=== PATIENT | female | born 1955 | race Caucasian/White ===

== ENCOUNTER 2021-02-08 20:12 | Emergency (ER) | payer BC, MEDICARE ==
[2021-02-08] MEDS ORDERED: Sodium Chloride 0.9% 1,000 ML IV ONE (21:20)
[2021-02-08] MEDS ORDERED: Ketorolac 30 MG/ML SDV IVPUSH ONE (21:20)
--- NOTE | 2021-02-08 21:20 | EDM.PDOC ---
ED HPI GENERAL MEDICAL PROBLEM - General Chief Complaint: Abdominal Pain Stated Complaint: ABDOMINAL PAIN/BACK PAIN Time Seen by Provider: 02/08/21 21:10 Source of Information: Reports: Patient History Limitations: Reports: No Limitations - History of Present Illness INITIAL COMMENTS - FREE TEXT/NARRATIVE: Patient is a 65-year-old female complaining of lower abdominal pain starting 3 days ago and is localized more to the right lower quadrant today. Pain is worse with certain movements the patient has not lost her appetite and does not see a correlation with increased pain with eating. She denies any fever or shaking chills. She did take some Tylenol which did make her feel better last night. Pain has gotten worse today and she rates it as 9 out of 10 in intensity at its worst currently 5 out of 10. She denies any dysuria or hematuria. Past surgical history is positive for cholecystectomy and hysterectomy. She states the pain is worse when she rolls over on her stomach or she touches the area. She has not had similar symptoms in the past. 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 Right Lower Abdomen Pain Score (Numeric/FACES): 6 - Related Data Allergies Allergy/AdvReac Type Severity Reaction Status Date / Time codeine Allergy Cannot Verified 02/08/21 20:31 Remember Home Meds: Home Meds Sulfamethoxazole/Trimethoprim [Bactrim Ds Tablet] 1 each PO BID #10 tablet 02/08/21 [Rx] Past Medical History HEENT History: Reports: Impaired Vision Gastrointestinal History: Reports: GERD 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 Constitutional: Reports: No Symptoms Respiratory: Reports: No Symptoms Cardiovascular: Reports: No Symptoms GI/Abdominal: Reports: Abdominal Pain. Denies: Anorexia, Bloody Stool, Distension, Melena, Nausea, Vomiting : Reports: No Symptoms. Denies: Dysuria, Hematuria Musculoskeletal: Reports: No Symptoms ED EXAM, GI/ABD - Physical Exam Exam: See Below Exam Limited By: No Limitations General Appearance: Alert, No Apparent Distress Head: Atraumatic, Normocephalic Neck: Normal Inspection, Supple Respiratory/Chest: No Respiratory Distress, Lungs Clear, Normal Breath Sounds Cardiovascular: Regular Rate, Rhythm, No Edema, No JVD GI/Abdominal Exam: Normal Bowel Sounds, Soft, Rebound, Tender. No: Distended, Guarding Back Exam: Normal Inspection. No: CVA Tenderness (L), CVA Tenderness (R) Extremities: Normal Inspection Neurological: Alert, Oriented Psychiatric: Normal Affect, Normal Mood Skin Exam: Warm, Dry Lymphatic: No Adenopathy Course - Vital Signs Text/Narrative:: Lab work including CBC and UA were all normal. Patient's CT scan of her abdomen pelvis showed that there is moderate bladder wall thickening and mild fullness of the collecting systems and ureters may be related to the abnormal bladder wall. No urinary calcifications are seen. Also the appendix was not specifically identified but no evidence of fluid or inflammatory stranding at the base of the cecum and there is a minor focus of groundglass density in the right lower lobe. I am not sure what is causing patient's bladder wall to be thickened but I will start her on a course of Bactrim in case this is infectious etiology and recommend she follow-up with a urologist as soon as possible. I will give her a prescription for a few [place] through [facility] also. She is to return to emergency department if having fever chills vomiting worse symptoms or she is not improving. Last Recorded V/S: Last Vital Signs Temp 97.1 F 02/08/21 20:28 Pulse 72 02/08/21 20:28 Resp 18 02/08/21 20:28 BP 166/73 H 02/08/21 20:28 Pulse Ox 100 02/08/21 20:28 - Orders/Labs/Meds Orders: Active Orders 24 hr Category Date Time Status Abdomen Pelvis w Cont [CT] Stat Exams 02/08/21 21:22 Taken Sulfamethoxazole/Trimethoprim [Septra DS] Med 02/08/21 23:42 Once 1 tab PO ONETIME ONE Labs: Laboratory Tests 02/08/21 02/08/21 02/08/21 Range/Units 21:35 21:35 22:05 WBC 7.72 (3.98-10.04) K/mm3 RBC 4.58 (3.98-5.22) M/mm3 Hgb 13.2 (11.2-15.7) gm/dl Hct 40.9 (34.1-44.9) % MCV 89.3 (79.4-94.8) fl MCH 28.8 (25.6-32.2) pg MCHC 32.3 (32.2-35.5) g/dl RDW Std Deviation 39.3 (36.4-46.3) fL Plt Count 332 (182-369) K/mm3 MPV 10.2 (9.4-12.3) fl Neutrophils % (Manual) 65 H (40-60) % Band Neutrophils % 1 (0-10) % Lymphocytes % (Manual) 28 (20-40) % Atypical Lymphs % 0 % Monocytes % (Manual) 4 (2-10) % Eosinophils % (Manual) 2 (0.7-5.8) % Basophils % (Manual) 0 L (0.1-1.2) Platelet Estimate Adequate RBC Morph Comment Normal Sodium 142 (136-145) mEq/L Potassium 4.3 (3.5-5.1) mEq/L Chloride 102 (98-107) mEq/L Carbon Dioxide 31 (21-32) mEq/L Anion Gap 13.3 (5-15) BUN 16 (7-18) mg/dL Creatinine 0.9 (0.55-1.02) mg/dL Est Cr Clr Drug Dosing 62.03 mL/min Estimated GFR (MDRD) > 60 (>60) mL/min BUN/Creatinine Ratio 17.8 (14-18) Glucose 95 (70-99) mg/dL Calcium 9.4 (8.5-10.1) mg/dL Total Bilirubin 0.2 (0.2-1.0) mg/dL AST 18 (15-37) U/L ALT 21 (14-59) U/L Alkaline Phosphatase 97 (46-116) U/L Total Protein 7.6 (6.4-8.2) g/dl Albumin 4.0 (3.4-5.0) g/dl Globulin 3.6 gm/dL Albumin/Globulin Ratio 1.1 (1-2) Urine Color Yellow (Yellow) Urine Appearance Clear (Clear) Urine pH 7.0 (5.0-8.0) Ur Specific [place] 1.020 (1.005-1.030) Urine Protein Negative (Negative) Urine Glucose (UA) Negative (Negative) Urine Ketones Negative (Negative) Urine Occult Blood Negative (Negative) Urine Nitrite Negative (Negative) Urine Bilirubin Negative (Negative) Urine Urobilinogen 0.2 (0.2-1.0) Ur Leukocyte Esterase Negative (Negative) Meds: Medications Discontinued Medications Generic Name Dose Route Start Last Admin Trade Name Freq PRN Reason Stop Dose Admin Sodium Chloride 1,000 mls @ 1,000 mls/hr 02/08/21 21:20 02/08/21 21:33 Normal Saline IV 02/08/21 22:19 1,000 mls/hr ONETIME ONE Administration Iopamidol 100 ml 02/08/21 22:09 02/08/21 22:11 Iopamidol 612 Mg/Ml 100 Ml Bottle IVPUSH 02/08/21 22:10 100 ml ONETIME ONE Administration Ketorolac Tromethamine 15 mg 02/08/21 21:20 02/08/21 21:33 Ketorolac 30 Mg/Ml Sdv IVPUSH 02/08/21 21:21 15 mg ONETIME ONE Administration Sodium Chloride 10 ml 02/08/21 22:09 02/08/21 22:11 Sodium Chloride 0.9% 10 Ml Sdv FLUSH 02/08/21 22:10 10 ml ONETIME ONE Administration Departure - Departure Time of Disposition: 23:49 Disposition: Home, Self-Care 01 Condition: Good Clinical Impression: Cystitis - Discharge Information Instructions: Urinary Tract Infection, Adult Referrals: Kory Ring MD [Primary Care Provider] - Forms: ED Department Discharge Sepsis Event Note (ED) - Evaluation Sepsis Screening Result: No Definite Risk - Focused Exam Vital Signs: Vital Signs Temp Pulse Resp BP Pulse Ox 02/08/21 20:28 97.1 F 72 18 166/73 H 100 - My Orders Last 24 Hours: My Active Orders 02/08/21 21:22 Abdomen Pelvis w Cont [CT] Stat 02/08/21 23:42 Sulfamethoxazole/Trimethoprim [Septra DS] 1 tab PO ONETIME ONE - Assessment/Plan Last 24 Hours: My Active Orders 02/08/21 21:22 Abdomen Pelvis w Cont [CT] Stat 02/08/21 23:42 Sulfamethoxazole/Trimethoprim [Septra DS] 1 tab PO ONETIME ONE
[2021-02-08] MEDS ORDERED: Sodium Chloride 0.9% 10 ML SDV FLUSH ONE (22:09)
[2021-02-08] MEDS ORDERED: Iopamidol 612 MG/ML 100 ML Bottle IVPUSH ONE (22:09)
[2021-02-08] MEDS ORDERED: Sulfamethoxazole/Trimethoprim 800-160 MG Tab PO ONE (23:42)
--- NOTE | 2021-02-09 06:29 | CT ---
CT abdomen and pelvis Technique: Multiple axial sections were obtained from above the dome of the diaphragm inferiorly through the pubic symphysis. Intravenous contrast was utilized. Delayed images were obtained of the bladder. Reconstructed coronal and sagittal images were obtained. Comparison: No prior abdominal imaging is available. Findings: Right lung base shows mild parenchymal density. Please exclude a minimal area of pneumonia. Liver contains no focal abnormality. Spleen size is within normal limits. Small hiatal hernia is seen. Adrenal glands show no nodule. Surgical clips are seen from prior cholecystectomy. Kidneys show symmetric contrast enhancement. Kidneys show no no hydronephrosis or mass. Bladder has slight wall thickening which likely relates to size. Abdominal aorta shows no aneurysm. Pancreas shows no discrete abnormality. No retroperitoneal adenopathy or mesenteric abnormalities are seen. Increased stool is seen throughout the colon. Appendix is felt to be visualized and is short but thickness is felt to be normal. No pelvic mass or adenopathy is seen. No free fluid is seen. Delayed images show contrast within the distal ureters and within the bladder. Bone window settings were reviewed which show disc calcification within the L1-2 disc. Slight joint space narrowing is seen within both hips. Mild degenerative change is noted within both sacroiliac joints. Impression: 1. Mild increased stool throughout the colon is seen. 2. Prior cholecystectomy. 3. Mild increased density within the right lung base. Please exclude that patient as having any symptoms of mild pneumonia. 4. Other findings believed to be incidental as described above. Diagnostic code #2 I agree with preliminary report from [facility], finalized on 02/09/21, 12:25 AM CDT, code 1
== END 2021-02-09 00:05 | disposition home or self-care (01) ==
LOC: JD.ED 20:12
DX: N30.90 Cystitis, unspecified without hematuria (principal); E03.9 Hypothyroidism, unspecified; Z88.5 Allergy status to narcotic agent; Z79.899 Other long term (current) drug therapy
CPT/HCPCS: 36415; 74177; 80053; 81003; 85007; 85027; 96374; 99284; A9270; J1885; J7030; Q9967